=== PATIENT | female | born 1940 | race Asian ===

== ENCOUNTER 2022-11-19 16:50 | Inpatient (IN) | payer MEDICAID ==
[~2022-11-19] VITALS: Ht 154.9 cm; Wt 60.8 kg
[2022-11-19 16:52] VITALS: BP 186/80
--- NOTE | 2022-11-19 16:53 | NUR ---
[facility] ALS TO ER BED 9
--- NOTE | 2022-11-19 17:17 | NUR ---
SIN AT BEDSIDE FOR EVALUATION
[2022-11-19] MEDS ORDERED: LIDOCAINE 5% 1 EA PATCH TP SCH (17:25)
[2022-11-19] MEDS ORDERED: KETOROLAC 15 MG/ML VIAL IM ONE (17:25)
[2022-11-19] MEDS ORDERED: ACETAMINOPHEN EXTRA STRENGTH 500 MG TAB PO ONE (17:25)
--- NOTE | 2022-11-19 18:28 | NUR ---
RESTING IN BED, SAYS IT WILL HURT IF SHE RAISE HER LEFT LEG. ALERT X 3, COOPERATIVE WITH CARE
--- NOTE | 2022-11-19 19:00 | NUR ---
one of the daughter at the bedside
--- NOTE | 2022-11-19 19:00 | NUR ---
PT C/O LEFT HIP PAIN S/P FALL 2 DAYS AGO [facility]: DENIES INCIDENT #: [id number]
[2022-11-19 19:12] LABS: BASOPHILS % (AUTO) 0.5 % (0.0-2.0); EOSINOPHILS % (AUTO) 0.3 % (0.0-4.0); HEMATOCRIT 38.8 % (36-48); HEMOGLOBIN 13.1 g/dL (12.0-16.0); LYMPHOCYTES # (AUTO) 1.4 K/uL (2.5-16.5); LYMPHOCYTES % (AUTO) 26.6 % (20.5-51.1); MEAN CORPUSCULAR HEMOGLOBIN 33 pg (27-31); MEAN CORPUSCULAR HGB CONC 34 g/dL (33-37); MEAN CORPUSCULAR VOLUME 98.1 fL (80-94); MONOCYTES # (AUTO) 0.6 K/uL (0.8-1.0); MONOCYTES % (AUTO) 10.6 % (1.7-9.3); NEUTROPHILS # (AUTO) 3.3 K/uL (1.8-7.7); PLATELET COUNT (AUTO) 220 K/uL (140-450); RED BLOOD CELL COUNT(AUTO) 3.95 MIL/uL (4.20-5.40); RED CELL DISTRIBUTION WIDTH 12.3 % (11.6-13.7); WHITE BLOOD COUNT (AUTO) 5.3 K/uL (4.8-10.8)
[2022-11-19 19:25] LABS: ALBUMIN 3.1 g/dL (3.4-5.0); ANION GAP 15.2 (8-16); ASPARTATE AMINOTRANSFERASE 75 U/L (15-37); CARBON DIOXIDE 23.6 mmol/L (21-32); CHLORIDE 110 mmol/L (98-107); CREATININE 0.8 mg/dL (0.6-1.3); GLUCOSE 112 mg/dL (74-106); POTASSIUM 3.8 mmol/L (3.5-5.1); SODIUM SERUM 145 mmol/L (136-145); TOTAL BILIRUBIN 0.6 mg/dL (0.0-1.0); UREA NITROGEN, BLOOD 14 mg/dL (7-18)
[2022-11-19] MEDS ORDERED: LORazepam 2 MG/ML VIAL IVP PRN (19:35)
[2022-11-19] MEDS ORDERED: DOCUSATE SODIUM 100 MG GELCAP PO PRN (19:35)
[2022-11-19] MEDS ORDERED: ONDANSETRON 4 MG/2 ML VIAL IVP PRN (19:35)
[2022-11-19] MEDS ORDERED: POTASSIUM CHLORIDE 10 MEQ TABER PO PRN (19:35)
[2022-11-19] MEDS ORDERED: MAG SULF 2000 MG/WATER PREMIX 50 ML IV PRN (19:35)
[2022-11-19] MEDS ORDERED: ACETAMINOPHEN 325 MG TAB PO PRN (19:35)
[2022-11-19] MEDS ORDERED: ZOLPIDEM 10 MG TAB PO PRN (19:35)
--- NOTE | 2022-11-19 21:23 | NUR ---
Patient will be admitted to care of [place] [facility]. Admited to [facility]. Will go to room 106a. Belongings list completed. Report to charli.
[2022-11-19 21:30] VITALS: BP 122/66
--- NOTE | 2022-11-19 21:30 | NUR ---
RECEIVED PT FROM ER / [facility] , MARGE , TRANSFER TO BED BY 2 PEOPLE MANUAL LIFT , IV SITE INTACT AND PATENT , DENIES PAIN AT THIS TIME , PT GOT PAIN MED AT ER , PT HAS LIDOCAINE PATCH AT LEFT UPPER THIGH AT OUTER SIDE . ADMISSION ASSESSMENT WILL BE DONE , ENSURE SAFETY PROTOCOL , CALL LIGHT WITHIN REACH , PT. WEARING HER OWN DIAPER AT THIS TIME . V/S SATBLE AT THIS TIME , SKIN INTACT . WILL CONT. TO MONITOR
--- NOTE | 2022-11-20 | NUR ---
PT. USING HER MOBILE GADGET , NO COMPLAIN MADE AT THIS TIME , CALL LIGHT WITHIN REACH .
--- NOTE | 2022-11-20 02:00 | NUR ---
BY THE HELP OF VIDEO LADLE CAR OPERATOR . PT IS AGREE TO PUT HER ON PUREWICK .
--- NOTE | 2022-11-20 04:00 | NUR ---
NO COMPLAIN MADE . PT USING HER MOBILE PHONE , CALL LIGHT WITHIN REACH .
--- NOTE | 2022-11-20 06:00 | NUR ---
ROUNDS , PT SMILING . NO COMPLAIN MADE CALL LIGHT WITHIN REACH
[2022-11-20 07:01] LABS: BASOPHILS % (AUTO) 0.6 % (0.0-2.0); EOSINOPHILS # (AUTO) 0.1 K/uL (0-0.4); HEMATOCRIT 38.4 % (36-48); HEMOGLOBIN 12.7 g/dL (12.0-16.0); LYMPHOCYTES % (AUTO) 31.9 % (20.5-51.1); MEAN CORPUSCULAR HEMOGLOBIN 33 pg (27-31); MEAN CORPUSCULAR HGB CONC 33 g/dL (33-37); MEAN CORPUSCULAR VOLUME 98.4 fL (80-94); MONOCYTES # (AUTO) 0.7 K/uL (0.8-1.0); MONOCYTES % (AUTO) 10.6 % (1.7-9.3); NEUTROPHILS # (AUTO) 3.5 K/uL (1.8-7.7); NEUTROPHILS % (AUTO) 55.9 % (42.2-75.2); PLATELET COUNT (AUTO) 220 K/uL (140-450); RED CELL DISTRIBUTION WIDTH 12.7 % (11.6-13.7); WHITE BLOOD COUNT (AUTO) 6.3 K/uL (4.8-10.8)
--- NOTE | 2022-11-20 07:33 | NUR ---
ENDORSED PT IN AM NURSE , FOR CONT. OF CARE , I ENDORSED TO NURSE I DID NOT REMOVE SHEET FROM ER OR EVEN CHANGE THE PT'S GOWN BECAUSE EVERY TIME PT TRY TO MOVE PER HER MOVEMENT EXAGERATES THE PAIN . FOR PT'S SAFETY I DID NOT MOVE THE PT TO PREVENT FURTHER INJURY . AM NURSE VERBALIZES UNDERSTANDING . Addendum: 11/20/22 at 818 by Saray Arnold RN I ENDORSED TO AM NURSE PT IS STILL HAVE LIDOCAINE PATCH . AND I DID NOT YET REMOVE IT . Addendum: 11/20/22 at 822 by Saray Arnold RN inform the am nurse the lidocaine patch is due to remove - am nurse verbalizes understanding . Addendum: 11/20/22 at 7887 by Saray Arnold RN informed charge nurse Bacilio jimenez still has lidocaine patch
[2022-11-20 08:44] LABS: ANION GAP 13.8 (8-16); CARBON DIOXIDE 26.3 mmol/L (21-32); CHLORIDE 107 mmol/L (98-107); CREATININE 0.9 mg/dL (0.6-1.3); GLUCOSE 96 mg/dL (74-106); POTASSIUM 3.1 mmol/L (3.5-5.1); SODIUM SERUM 144 mmol/L (136-145); UREA NITROGEN, BLOOD 15 mg/dL (7-18)
--- NOTE | 2022-11-20 09:11 | NUR ---
PATIENT HAS BEEN SCREENED AND CATEGORIZED LOW NUTRITION RISK. PATIENT WILL BE SEEN WITHIN 7 DAYS OF ADMISSION. 11/26/22 REVIEWED BY KATHY JACK RD
--- NOTE | 2022-11-20 12:28 | NUR ---
P.T. NOTES P.T. EVAL COMPLETED; REFER TO EVAL FOR DETAILS.
--- NOTE | 2022-11-20 16:54 | NUR ---
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
--- NOTE | 2022-11-20 19:20 | NUR ---
RECEIVED REPORT FROM DAY SHIFT RN FOR CONTINUITY OF CARE. PT IS CURRENTLY RESTING IN BED NOT IN ANY DISTRESS. DENIES ANY PAIN AT THIS TIME. PT HAS DIAPER ON WITH PUREWICK. POC DISCUSSED. WILL CONTINUE TO MONITOR.
--- NOTE | 2022-11-20 21:37 | NUR ---
0800: RECEIVED PT FROM HEIDI CORRAL. PT RESTING IN BED. NO GUARDING OR GRMACING. NO ACUTE DISTRESS NOTED AT THIS TIME. [id number].
--- NOTE | 2022-11-20 21:39 | NUR ---
193: REPORT OFF TO JEROME CORRAL. PT RESTING IN BED. NO GAURDING OR GRIMACING. NO ACUTE DISTRESS NOTED AT THIS TIME. [id number].
--- NOTE | 2022-11-20 23:45 | NUR ---
PT IS CURRENTLY RESTING IN BED. NOT IN ANY DISTRESS. BREATHING EVEN AND UNLABORED. WILL CONTINUE TO MONITOR THE PT.
[2022-11-21] VITALS: BP 125/61
--- NOTE | 2022-11-21 04:00 | NUR ---
PT SLEEPING COMFORTABLY IN BED. NOT IN ANY DISTRESS. BREATHING EVEN AND UNLABORED.
--- NOTE | 2022-11-21 07:13 | NUR ---
ENDORSED PT TO DAY SHIFT RN FOR CONTINUITY OF CARE. PT IS STABLE.
--- NOTE | 2022-11-21 07:15 | NUR ---
RECEIVED PT FROM GARDEN EQUIPMENT MECHANIC NURSE FOR CONTINUITY OF CARE. PT IN BED SLEEPING. VISIBLE CHEST RISE/FALL. RESPIRATIONS EVEN AND UNLABORED ON RA. NO DISTRESS NOTED. IV ON R ARM 22G SL. SKIN WARM AND DRY. CALL LIGHT WITHIN REACH ALL SAFETY PRECAUTIONS IN PLACE.
[2022-11-21 07:38] LABS: BASOPHILS % (AUTO) 0.5 % (0.0-2.0); EOSINOPHILS # (AUTO) 0.1 K/uL (0-0.4); EOSINOPHILS % (AUTO) 1.1 % (0.0-4.0); HEMATOCRIT 36.4 % (36-48); HEMOGLOBIN 12.2 g/dL (12.0-16.0); LYMPHOCYTES # (AUTO) 1.4 K/uL (2.5-16.5); LYMPHOCYTES % (AUTO) 25.1 % (20.5-51.1); MEAN CORPUSCULAR HEMOGLOBIN 33 pg (27-31); MEAN CORPUSCULAR HGB CONC 33 g/dL (33-37); MEAN CORPUSCULAR VOLUME 98.4 fL (80-94); MONOCYTES # (AUTO) 0.6 K/uL (0.8-1.0); MONOCYTES % (AUTO) 11.8 % (1.7-9.3); NEUTROPHILS # (AUTO) 3.3 K/uL (1.8-7.7); NEUTROPHILS % (AUTO) 61.5 % (42.2-75.2); PLATELET COUNT (AUTO) 213 K/uL (140-450); RED CELL DISTRIBUTION WIDTH 12.5 % (11.6-13.7); WHITE BLOOD COUNT (AUTO) 5.4 K/uL (4.8-10.8)
[2022-11-21 07:47] LABS: ANION GAP 12.3 (8-16); CARBON DIOXIDE 24.9 mmol/L (21-32); CHLORIDE 110 mmol/L (98-107); CREATININE 0.9 mg/dL (0.6-1.3); GLUCOSE 109 mg/dL (74-106); POTASSIUM 4.2 mmol/L (3.5-5.1); SODIUM SERUM 143 mmol/L (136-145); UREA NITROGEN, BLOOD 15 mg/dL (7-18)
[2022-11-21 08:00] VITALS: BP 144/71
--- NOTE | 2022-11-21 09:00 | NUR ---
DR PASCAL AT BEDSIDE.
[2022-11-21] MEDS ORDERED: PRED20TA5 PO (10:31)
[2022-11-21] MEDS ORDERED: IBUP-2213 PO (10:32)
--- NOTE | 2022-11-21 11:05 | NUR ---
DAUGHTER AT BEDSIDE. PT C/O PAIN ON LOWER BACK 02/23. RN HUGH TO ADMINISTER MEDICATION.
[2022-11-21] MEDS: MORPHINE SULFATE 2 MG/ML SYR IVP PRN ×2 (11:07→15:40)
[2022-11-21] MEDS ORDERED: methylPREDNISolone SS 125 MG/2 ML VIAL IVP SCH (13:00)
--- NOTE | 2022-11-21 13:01 | NUR ---
MAKING ROUNDS, PT LAYING DOWN IN BED USING PHONE.
--- NOTE | 2022-11-21 15:22 | NUR ---
USED VOYCE INTERPRETATION TO COMMUNICATE WITH PATIENT. FIRE PREVENTION RESEARCH ENGINEER [place] [id number] PETE. DISCUSSED DISCHARGE WITH PATIENT AND INFORMED HER OF FOLLOW UP WITH DR IF PAIN IN SPINE CONTINUES. PT VERBALIZED UNDERSTANDING. ALL QUESTIONS ANSWERED.
--- NOTE | 2022-11-21 15:45 | NUR ---
CALLED PT DAUGHTER HIEN. INFORMED HER OF DISCHARGE AND ORTHO RECOMMENDATION. DAUGHTER VERBALIZED UNDERSTANDING. STATES SHE WILL BE PICKING UP HER MOTHER AROUND 1700.
[2022-11-21 16:00] VITALS: BP 153/85
--- NOTE | 2022-11-21 17:50 | NUR ---
DISCUSSED DC PACKET WITH PT AND DAUGHTER. NAME BAND AND IV REMOVED. ALL BELONGINGS GATHERED AND TAKEN BY DAUGHTER. PT ASSISTED TO WHEELCHAIR, TAKEN TO [facility]. PT GOT IN FAMILY VEHICLE SAFELY. PT IN STABLE CONDITION DC TO HOME.
== END 2022-11-21 17:50 | disposition home or self-care (01) | DRG 347 ==
LOC: MED 16:50 → MTU 20:20
PROVIDERS: ADMIT Family Medicine; ATTEND Family Medicine
DX: S32.019A Unspecified fracture of first lumbar vertebra, initial encounter for closed fracture (principal); E44.1 Mild protein-calorie malnutrition; E88.09 Other disorders of plasma-protein metabolism, not elsewhere classified; S32.029A Unspecified fracture of second lumbar vertebra, initial encounter for closed fracture; S32.049A Unspecified fracture of fourth lumbar vertebra, initial encounter for closed fracture; M19.90 Unspecified osteoarthritis, unspecified site; M54.16 Radiculopathy, lumbar region; E78.5 Hyperlipidemia, unspecified; Z20.822 Contact with and (suspected) exposure to COVID-19; I10 Essential (primary) hypertension; M25.552 Pain in left hip; Z68.25 Body mass index [BMI] 25.0-25.9, adult
CPT/HCPCS: 36415; 72110; 72131; 72170; 73502; 73700; 80048; 80053; 83735; 85025; 87081; 93005; 96372; 97110; 97112; 97116; 97163-GP; 99285; J1885; J2270; J2930